=== PATIENT | male | born 1935 | race Caucasian/White ===

== ENCOUNTER → 2017-07-05 | Day surgery (SDC) | payer MEDICARE, OTHER ==
[~2017-07-05] MED LIST: CEFTRIAXONE SOD 1 GM VIAL ONE; DEXAMETHASONE SOD PHOS INJ 4 MG/ML VIAL ONE; FENTANYL CITRATE/PF 100MCG/2 ML INJ ONE; GENTAMICIN 120MG/NS 100ML 100 ML ONE; LIDOCAINE HCL 2% LOCAL INJ 5 ML SDV VIAL INJ ONE; MELOXICAM15 MG PO; ONDANSETRON HCL INJ 2 MG/ML VIAL ONE; PHENYLEPHRINE HCL 1% 10 MG/ML VIAL ONE; PROPOFOL IV EMULSION 10 MG/ML 20 ML VIAL ONE; SEVOFLURANE INHAL SOLN 250 ML PEN BTL ONE; SIMVASTATIN20 MG PO
--- NOTE | 2017-07-05 15:03 | Operative Report ---
DATE OF PROCEDURE: July 05, 2017 PREOPERATIVE DIAGNOSES 1. BPH. 2. Rule out carcinoma of the prostate. 3. Abnormal prostate-specific antigen. POSTOPERATIVE DIAGNOSES 1. BPH. 2. Rule out carcinoma of the prostate. 3. Abnormal prostate-specific antigen. 4. Proximal bulbous urethral stricture, very tight. 5. Prostatic obstruction. OPERATION 1. Transrectal ultrasound of the prostate. 2. Transrectal ultrasound-guided needle biopsies. 3. Cystourethroscopy with balloon dilation of the proximal bulbous urethral stricture. 4. Insertion of 20-Turk[place] Silver catheter. INDICATIONS: Mr. Eaton is an 82-year-old male who presented with a chief complaint of lower urinary tract obstructive symptoms and elevated PSA. Rectal exam showed an enlarged prostate gland, about 50-60 grams, with firm area in the right peripheral zone. DESCRIPTION OF PROCEDURE: This patient was placed on the table in the lithotomy position. Transrectal ultrasound of the prostate was performed. The prostate measured 5.48 x 4.51 x 5.46 with a total volume of 65.25 mL. There were 2 hypoechoic areas, one at the peripheral zone on the right side and one on the left side. There was also some calcification with postcalcification shadowing. Both seminal vesicles were unremarkable. This patient then underwent transrectal ultrasound-guided needle biopsies from the hypoechoic areas and from the normal-appearing prostate to map it for any multifocal carcinoma. This patient was then prepped and draped in a sterile manner. A #23-Turk[place] cystoscope was used, and cystourethroscopy was performed. There was a very tight urethral stricture at the level of the proximal bulbous urethra. A 0.38 flexible-tip Glidewire was then passed through the working channel of the cystoscope through the strictured area and passed all the way to the bladder. Microvasive balloon dilator was then passed through the working channel of the cystoscope, over the guidewire, through the strictured area, and the balloon was inflated up to 5 atmospheres for 3 minutes. The balloon was deflated and removed. I was now able to pass the scope through the strictured area. The prostatic urethra was about 5 cm long, bilobar and occlusive. Cystoscopy was then performed using both right angle and foroblique lens. The bladder mucosa was normal. There were no tumors or any other pathology. The bladder wall was moderately trabeculated. Both ureteral orifices were seen and were in normal position, configuration, and efflux. The cystoscope was removed, leaving the guidewire in. A 20-[place]tip Silver catheter was passed over the guidewire, through the strictured area, to the bladder, and the balloon was inflated with 5 mL. Plan for this patient is to be placed on Levaquin 500 mg once a day for 1 week and Ultracet tablet 1 every 6 to 8 hours p.r.n. He is to return to the office in 1 week when at that time the Silver catheter will be changed to a bigger size until we bring him up to 24. Then, after that, we will go ahead with any procedure that is indicated. Job#: [id number]
== END | disposition home or self-care (01) ==
LOC: OR 08:49
PROVIDERS: ATTEND Specialist
DX: N40.1 Benign prostatic hyperplasia with lower urinary tract symptoms (principal); R97.20 Elevated prostate specific antigen [PSA]; N42.30 Unspecified dysplasia of prostate; N13.8 Other obstructive and reflux uropathy; N35.8 Other urethral stricture; N42.89 Other specified disorders of prostate; N32.89 Other specified disorders of bladder; M13.869 Other specified arthritis, unspecified knee
CPT/HCPCS: 52281; 55700; 76872; 76942; 88305; J0696; J1100; J1580; J2001; J2370; J2405